=== PATIENT | male | born 1990 | race African-American/Black ===

== ENCOUNTER 2018-04-04 18:36 | Emergency (ER) | payer OTHER ==
[~2018-04-04] VITALS: Ht 170.2 cm; Wt 70.8 kg
[2018-04-04] MEDS ORDERED: BENTYL 20 MG TA20 M1 PO (18:45)
[2018-04-04] MEDS ORDERED: OXYBUTYNIN 5 MG5 M2 PO (18:46)
[2018-04-04] MEDS ORDERED: TIZANIDINE HCL4 M1 PO (18:46)
[2018-04-04] MEDS ORDERED: XANAX 0.5 MG0.5 MG PO (18:47)
[2018-04-04 18:51] LABS: URINE BILIRUBIN NEGATIVE (Negative); URINE BLOOD NEGATIVE (Negative); URINE CLARITY CLEAR; URINE COLOR YELLOW; URINE GLUCOSE-RANDOM NEGATIVE (Negative); URINE KETONES TRACE (Negative); URINE LEUKOCYTES-REFLEX NEGATIVE (Negative); URINE NITRITE-REFLEX NEGATIVE (Negative); URINE PROTEIN 1+ (Negative); URINE SPECIFIC GRAVITY 1.025 (1.005-1.030); URINE UROBILINOGEN 0.2 E.U./dl (0.2-1.0)
[2018-04-04 19:09] LABS: HEMATOCRIT 40.8 % (42.0-52.0); HEMOGLOBIN 13.5 gm/dL (14.0-18.0); MCH 28.6 pg (26.0-34.0); MCHC 33.1 g/dL (28.0-37.0); MCV 86.4 fL (80.0-100.0); MPV 6.4 fl. (7.2-11.1); NUCLEATED RBCS 0 /100WBC; PLATELET COUNT* 414 thou/uL (150-400); RBC 4.72 mil/uL (4.50-6.00); RDW-CV 13.2 % (10.5-14.5); WBC 5.9 thou/uL (4.0-11.0)
[2018-04-04 19:27] LABS: ALBUMIN 3.4 g/dL (3.4-5.0); CALCIUM 9.3 mg/dL (8.5-10.1); CREATININE 0.9 mg/dL (0.6-1.3); POTASSIUM 3.3 mmol/L (3.5-5.1); TOTAL BILIRUBIN 0.4 mg/dL (<0.1-1.0); TOTAL PROTEIN 9.4 g/dL (6.4-8.2)
[2018-04-04 20:01] VITALS: BP 122/74
[2018-04-04 20:03] LABS: ABSOLUTE BASOPHILS 0.1 thou/uL (0.0-0.2); ABSOLUTE EOSINOPHILS 0.5 thou/uL (0.0-0.7); ABSOLUTE LYMPHOCYTES 2.5 thou/uL (0.8-5.3); ABSOLUTE MONOCYTES 0.5 thou/uL (0.0-1.2); ABSOLUTE NEUTROPHILS 2.3 thou/uL (1.6-8.1); ATYPICAL LYMPHS 1 %
[2018-04-04 20:04] LABS: PLATELET ESTIMATE ADEQUATE
== END 2018-04-04 20:01 | disposition home or self-care (01) ==
LOC: M.ERS 18:36
PROVIDERS: Physician Assistant
DX: N43.3 Hydrocele, unspecified (principal); L72.0 Epidermal cyst; F41.9 Anxiety disorder, unspecified